=== PATIENT | female | born 2000 | race African-American/Black ===

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

== ENCOUNTER 2019-03-09 07:18 | Emergency (ER) | payer OTHER ==
[~2019-03-09] VITALS: Ht 162.6 cm; Wt 70.3 kg
[2019-03-09 07:47] VITALS: BP_SYST 108
--- NOTE | 2019-03-09 07:50 | NUR ---
Patient to ER bed 03 to gown for evaluation. Side rails up.
--- NOTE | 2019-03-09 07:56 | NUR ---
pt arrives from home w/ c/o a sore throat x 5 days. Pt also reports congestion w/ cough. Pt is currently afebrile. Will continue to monitor.
--- NOTE | 2019-03-09 08:20 | NUR ---
ER at bedside examining patient.
--- NOTE | 2019-03-09 08:21 | NUR ---
Aaliyah sage collected and sent to the lab.
[2019-03-09] MEDS ORDERED: DEXAMETHASONE SOD PHOSPHATE 10 MG/ML VIAL IVP ONE (08:30)
--- NOTE | 2019-03-09 08:52 | NUR ---
Pt moved to bed H1
[2019-03-09] MEDS ORDERED: IBUPROFEN 600 MG TABLET PO ONE (09:15)
[2019-03-09 09:27] VITALS: BP_SYST 108
--- NOTE | 2019-03-09 09:28 | NUR ---
Patient given written and verbal discharge instructions and verbalizes understanding. ER MD discussed with patient the results and treatment provided. Patient in stable condition. ID arm band removed. Rx of Ibuprofen given. Patient educated on pain management and to follow up with PMD. Pain Scale 2/10 tolerable for patient Opportunity for questions provided and answered. Medication side effect fact sheet provided.
== END 2019-03-09 09:27 | disposition home or self-care (01) ==
LOC: SED 07:18
DX: J02.8 Acute pharyngitis due to other specified organisms (principal); B97.89 Other viral agents as the cause of diseases classified elsewhere
CPT/HCPCS: 86403; 87081; 99283; J1100; 36415

== ENCOUNTER 2019-04-15 18:41 | Emergency (ER) | payer OTHER ==
[~2019-04-15] VITALS: Ht 160 cm; Wt 72.6 kg
[2019-04-15 19:01] VITALS: BP_SYST 122
== END 2019-04-15 19:13 ==
LOC: SED 18:41
DX: Z02.83 Encounter for blood-alcohol and blood-drug test (principal)